=== PATIENT | female | born 1990 | race Caucasian/White ===

== ENCOUNTER 2020-11-03 18:07 | Emergency (ER) | payer OTHER ==
[~2020-11-03] VITALS: Ht 157.5 cm; Wt 50.0 kg
[2020-11-03 18:09] VITALS: BP 136/104
[2020-11-03 18:30] LABS: URINE HCG NEGATIVE (NEG)
== END 2020-11-03 19:22 | disposition home or self-care (01) ==
LOC: ER 18:08
DX: Z02.89 Encounter for other administrative examinations (principal); F41.9 Anxiety disorder, unspecified; Z72.89 Other problems related to lifestyle; Z88.0 Allergy status to penicillin
CPT/HCPCS: 81025; 99283